=== PATIENT | female | born 1960 | race African-American/Black ===

== ENCOUNTER 2019-01-21 06:27 | Day surgery (SDC) | payer MEDICARE, MEDICAID ==
--- NOTE | 2019-01-18 13:35 | Pre-Procedure Note/Attestation ---
Pre-Procedure Note/Attestation Complete Prior to Procedure Planned Procedure: right Procedure Narrative: Cataract extraction With Intraocular Lens Implant Right Eye Indications for Procedure Pre-Operative Diagnosis: Cataract Right Eye Attestation I attest that I discussed the nature of the procedure; its benefits; risks and complications; and alternatives (and the risks and benefits of such alternatives ), prior to the procedure, with the patient (or the patient's legal business process representative). I attest that, if there was a reasonable possibility of needing a blood transfusion, the patient (or the patient's legal business process representative) was given the [facility] standardized written summary, pursuant to the [place] Blood Safety Act ([place] Health and Safety Code # 1645, as amended). I attest that I re-evaluated the patient just prior to the surgery and that there has been no change in the patient's H&P, except as documented below: Malik Arias MD Jan 18, 2019 13:35
--- NOTE | 2019-01-18 13:38 | Opthalmology H&P ---
Ophthalmology H&P H&P Chief Complaint: decreased vision in right eye HPI Vision Affects Ability to: read, focus/use eyes together Past Ocular History: retinal problems - NPDR Severe OU HPI Narrative Blurry Vision Exam Visual Acuity: OD 20/80 OD 20/60 Tension: OD 16 OS 13 Eye Exam: normal OU: external exam, palpebral fissure-width, marginal reflex distance, levator function, corneas, anterior chambers; findings: lens - Cataract NS OU, fundus exam - Severe NPDR OU Assessment/Plan Treatment Plan: cataract extraction w/ lens implant Goals of Treatment: improvement of vision, enhance quality of life Attestation Attestation The risks and benefits of the surgery as well as alternative procedures were explained to the patient in detail. Malik Arias MD Jan 18, 2019 13:38
[~2019-01-21] VITALS: Ht 157.5 cm; Wt 70.3 kg
[2019-01-21] VITALS (9 sets, daily range): BP systolic 141–165; BP diastolic 83–105
[2019-01-21] MEDS ORDERED: Akten 3.5% 1ml Btl RIGHT EYE ONE (07:00)
[2019-01-21] MEDS ORDERED: Dexamethasone 4mg/ml vial ONE (07:00)
[2019-01-21] MEDS ORDERED: Proparacaine 0.5% Opth Soln 15ml RIGHT EYE ONE (07:00)
[2019-01-21] MEDS ORDERED: Pred Forte 1% Opth Susp 1ml ONE (07:00)
[2019-01-21] MEDS ORDERED: Maxitrol Opth Oint 3.5gm ONE (07:00)
[2019-01-21] MEDS ORDERED: Tetracaine 0.5% Opth 4ml Soln RIGHT EYE ONE (07:00)
[2019-01-21] MEDS ORDERED: Pilocarpine 1% Opth 15ml Soln ONE (07:00)
[2019-01-21] MEDS: Tropicamide 1% Opth 15ml Soln RIGHT EYE SCH ×3 (07:52→08:07)
[2019-01-21] MEDS: Diclofenac Sod 0.1% Op Soln RIGHT EYE SCH ×3 (07:52→08:07)
[2019-01-21] MEDS: Cyclopentolate 1% Opth Sol 2ml RIGHT EYE SCH ×3 (07:52→08:07)
[2019-01-21] MEDS: Tobramycin Op Soln 0.3% 5ml RIGHT EYE SCH ×3 (07:52→08:07)
[2019-01-21] MEDS: Phenylephrine 10% Opth Soln 5ml RIGHT EYE SCH ×3 (07:52→08:07)
[2019-01-21] MEDS ORDERED: OMEPRAZOLE20 M3 ORAL (08:04)
[2019-01-21] MEDS ORDERED: PLAVIX75 MG ORAL (08:04)
[2019-01-21] MEDS ORDERED: ASPIR 8181 MG ORAL (08:04)
[2019-01-21] MEDS ORDERED: GABAPENTIN600 MG ORAL (08:04)
[2019-01-21] MEDS ORDERED: HYDROCHLOROTHIA25 MG ORAL (08:04)
[2019-01-21] MEDS ORDERED: GLIPIZIDE10 MG PO (08:04)
[2019-01-21] MEDS ORDERED: AMLODIPINE BESY10 MG ORAL (08:05)
[2019-01-21] MEDS ORDERED: EPINEPHrine 1mg/1ml Amp ONE (08:57)
[2019-01-21] MEDS ORDERED: Povidone-Iodine 5% opth solution ONE (08:58)
[2019-01-21] MEDS ORDERED: Sodium Hyaluronate 14 mg/ml 0.85ml ONE (08:58)
[2019-01-21] MEDS ORDERED: BSS 500ml btl ONE (08:58)
[2019-01-21] MEDS ORDERED: BSS 15ml BTL ONE (08:58)
[2019-01-21] MEDS ORDERED: fentaNYL 100 mcg/2 mL IV ONE (09:30)
[2019-01-21] MEDS ORDERED: Sterile Water Irrig 1000ml IRRIG ONE (09:30)
[2019-01-21] MEDS ORDERED: NS Irrig 1000ml ONE (09:30)
[2019-01-21] MEDS ORDERED: LR 1000ml ONE (09:30)
[2019-01-21] MEDS ORDERED: Midazolam 2mg/2ml Inj ONE (09:30)
--- NOTE | 2019-01-21 11:30 | Anethesia Preoperative Eval ---
Anesthesia Pre-op PMH/ROS General Date of Evaluation: Jan 21, 2019 ASA Score: ASA 1 Mallampati Score Class I : Soft palate, uvula, fauces, pillars visible Class II: Soft palate, uvula, fauces visible Class III: Soft palate, base of uvula visible Class IV: Only hard plate visible Mallampati Classification: Class I - q Allergies: Coded Allergies: No Known Allergies (Unverified , 01/21/19) Patient NPO?: Yes Anesthesia Pre-op Phys. Exam Physician Exam Last Vital Signs Date Time Temp Pulse Resp B/P (MAP) Pulse Ox O2 Delivery O2 Flow Rate FiO2 01/21/19 10:49 97.2 65 19 152/98 98 Room Air Airway Exam Mallampati Score: Class I - q Rc Zimmerman MD Jan 21, 2019 11:30
--- NOTE | 2019-01-21 11:30 | Immediate Post-Op Evaluation ---
Immediate Post-Op Evalulation Immediate Post-Op Evalulation Procedure: r cataract Date of Evaluation: Jan 21, 2019 Nausea: No Vomiting: No Rc Zimmerman MD Jan 21, 2019 11:30
--- NOTE | 2019-01-23 10:15 | Brief Operative Note ---
Immediate Post Operative Note Operative Note Chief Complaint: blurry vision Pre-op Diagnosis: Cataract Right Eye Procedure: phaco with IOL Post-op Diagnosis: Pseudophakia Post-op Diagnosis: same as pre-op Findings: consistent w/pre-op dx studies Surgeon: Juana Anesthesiologist: Elsie Anesthesia: MAC Specimen: none Complications: none Condition: stable Fluids: LR Estimated Blood Loss: none Drains: none Implant(s) used?: Yes Malik Arias MD Jan 23, 2019 10:15
--- NOTE | 2019-01-23 10:17 | Operative Note - PDOC ---
Operative Note Operative Note Date of Operation/Procedure: Jan 21, 2019 Chief Complaint: blurry vision Pre-op Diagnosis: Cataract Right Eye Procedure: phaco with IOL Post-op Diagnosis: Pseudophakia Post-op Diagnosis: same as pre-op Operative Findings: consistent w/pre-op dx studies Surgeon: Juana Anesthesiologist: Elsie Anesthesia: MAC Specimen: none Complications: none Condition: stable Fluids: LR Estimated Blood Loss: none Drains: none Implant(s) used?: Yes Indications for Procedure phaco with IOL Description of Procedure This patient has been complaining visually significant cataract in the affected eye with the best corrected visual acuity under moderate glare conditions worse. The patient complains of difficulties with glare in performing activities of daily living and wants to manage personal affairs with comfort and accuracy and see well enough to move with safety at home and outdoors. The risks, benefits and alternatives of the procedure were discussed with the patient in the office prior to scheduling surgery. All questions from the patient were answered after the surgical procedure was explained in detail. The risks of the procedure as explained to the patient include, but are not limited to, pain, infection, bleeding, loss of vision, retinal detachment, need for further surgery, loss of lens nucleus, double vision, etc. Alternative procedures were discussed which include, to do nothing or seek a second opinion. Informed consent for this procedure was obtained from the patient. The patient was referred to a primary care physician for a cardiopulmonary clearance prior to surgery, after proper evaluation was done patient was properly scheduled for outpatient surgery. The patient was brought to the operating room where the anesthesiologist established I.V. lines and cardiac monitoring leads. Mild intravenous sedation was administered. The patient was then prepared with a 5% solution of povidone -iodine to the conjunctival fornix and lashes, and a 5% solution of povidone- iodine to the lids and periorbital skin. The patient was then draped in the usual sterile fashion. A lid speculum was then placed in the operative eye. A keratome blade was then used to create a biplanar incision into the anterior chamber. Viscoelastics was then instilled into the anterior chamber. A curvilinear capsulorrhexis was then fashioned with an utrata forceps followed by hydrodissection and hydro delineation of the lens nucleus with G 27 cannula. Paracentesis incision was made at 3 o'clock with sharp blade. The phacoemulsification unit, after being properly adjusted and tested, was then used to emulsify the nucleus followed by aspiration and irrigation of residual cortical material. Healon was then instilled into the anterior chamber. The corneal wound was then enlarged to the size of the optic with the nabeel keratome blade. The intraocular lens was then inspected for right power and size and thought to be satisfactory. Then the lens was gently placed in the capsular bag. Positioning within the capsular bag was confirmed by direct visualization. Optic centration was accomplished with a Sins[place] hook. Viscoelastics was removed from the anterior chamber using the irrigation and aspiration unit. The corneal wound was then tested for leaks and none were found. The lid speculum were then removed. Sponge and needle counts were correct. An eye patch and shield were placed over the operative eye. The patient was taken to the recovery room in stable condition. There were no complications. The patient tolerated the procedure well. The patient was then transferred to the ambulatory surgery unit in stable and satisfactory condition , was given detailed written instructions and asked to follow up in the office the next day. Malik Arias MD Jan 23, 2019 10:17
== END 2019-01-21 12:00 | disposition home or self-care (01) ==
LOC: SUR 06:27
DX: H25.11 Age-related nuclear cataract, right eye (principal); I10 Essential (primary) hypertension; I25.10 Atherosclerotic heart disease of native coronary artery without angina pectoris; Z95.5 Presence of coronary angioplasty implant and graft; I25.2 Old myocardial infarction; K21.9 Gastro-esophageal reflux disease without esophagitis; E11.40 Type 2 diabetes mellitus with diabetic neuropathy, unspecified
CPT/HCPCS: 66984; 82962; J0171; J1100; J2250; J3010; J3370; V2632; 94003; 94150